=== PATIENT | male | born 1960 | race Caucasian/White ===

== ENCOUNTER 2017-05-17 20:11 | Emergency (ER) | payer OTHER ==
[~2017-05-17] VITALS: Ht 182.9 cm; Wt 163.6 kg
[2017-05-17 20:23] VITALS: Ht 182.9 cm; Wt 163.6 kg
[2017-05-17] MEDS ORDERED: SOD CHLORIDE 0.9% 1,000 ML IV STA (20:25)
[2017-05-17] MEDS ORDERED: ENALAPRILAT 1.25 MG INJ IV ONE (20:30)
[2017-05-17 20:46] LABS: AADO2 Arterial 107.3 mmHg (7.0-24.0); Allen Test ACCEPTAB; Arterial Base Excess 2.4 mmol/L (-3.0-3); Arterial COHb 1.1 % (0.0-3.0); Arterial Fraction of Oxyhgb 91.2 % (93.0-99.0); Arterial HCO3 28.9 mmol/L (22.0-26.0); Arterial MetHb 0.3 % (0.0-1.5); Arterial Total Hemglobin 16.5 g/dl (12.0-18.0); MODE NASAL CANNULA
[2017-05-17 20:59] LABS: ABNORMAL IP MESSAGE 1; BASOPHILS % 0.4 % (0.0-2.0); EOSINOPHILS # 0.3 10^3/ul (0.0-0.5); EOSINOPHILS % 4.2 % (0.0-7.0); HEMATOCRIT 46.8 % (42.0-52.0); HEMOGLOBIN 15.6 g/dl (14.0-18.0); LYMPHOCYTES # 1.8 10^3/ul (0.8-2.9); LYMPHOCYTES % 24.6 % (15.0-51.0); MEAN CORPUSCULAR HEMOGLOBIN 32.8 pg (29.0-33.0); MEAN CORPUSCULAR HGB CONC 33.3 g/dl (32.0-37.0); MEAN CORPUSCULAR VOLUME 98.3 fl (82.0-101.0); MEAN PLATELET VOLUME 13.2 fl (7.4-10.4); MONOCYTE # 0.9 10^3/ul (0.3-0.9); MONOCYTES % 12.5 % (0.0-11.0); NEUTROPHILS % 57.3 % (39.0-77.0); PLATELET COUNT 116 10^3/UL (140-415); POSITIVE DIFF @See below; RED BLOOD COUNT 4.76 10^6/ul (4.70-6.10); RED CELL DISTRIBUTION WIDTH 15.3 % (11.5-14.5); WHITE BLOOD COUNT 7.1 10^3/ul (4.8-10.8)
[2017-05-17 21:18] LABS: ALANINE AMINOTRANSFERASE 46 IU/L (13-69); ALBUMIN 3.3 g/dl (3.3-4.9); ALBUMIN/GLOBULIN RATIO 0.86; ALKALINE PHOSPHATASE 79 IU/L (42-121); ANION GAP 11 (8-16); ASPARTATE AMINO TRANSFERASE 39 IU/L (15-46); BILIRUBIN,INDIRECT 0.2 mg/dl (0-1.1); BILIRUBIN,TOTAL 0.2 mg/dl (0.2-1.3); BLOOD UREA NITROGEN 16 mg/dl (7-20); CALCIUM 8.4 mg/dl (8.4-10.2); CARBON DIOXIDE 29 mmol/L (21-31); CHLORIDE 105 mmol/L (97-110); CREATININE 0.93 mg/dl (0.61-1.24); GLUCOSE 94 mg/dl (70-220); POTASSIUM 4.2 mmol/L (3.5-5.1); SODIUM 141 mmol/L (135-144); TOTAL PROTEIN 7.1 g/dl (6.1-8.1)
[2017-05-17 21:19] LABS: ADD UMIC YES; UR ASCORBIC ACID NEGATIVE (NEGATIVE); UR BILIRUBIN (Dip) 1+ mg/dL (NEGATIVE); UR BLOOD (Dip) NEGATIVE (NEGATIVE); UR CLARITY CLEAR (CLEAR); UR COLOR AMBER (YELLOW); UR GLUCOSE (Dip) NEGATIVE (NEGATIVE); UR KETONES (Dip) NEGATIVE (NEGATIVE); UR LEUKOCYTE ESTERASE (Dip) NEGATIVE Leu/ul (NEGATIVE); UR MUCUS FEW /HPF (NONE SEEN); UR NITRITE (Dip) NEGATIVE (NEGATIVE); UR RBC 5 /HPF (0-5); UR SPECIFIC GRAVITY (Dip) 1.025 (1.003-1.030); UR TOTAL PROTEIN (Dip) 1+ mg/dl (NEGATIVE); UR UROBILINOGEN (Dip) 2+ mg/dL (NEGATIVE)
[2017-05-17 21:30] LABS: TROPONIN-I < 0.012 ng/ml (0.00-0.12)
[2017-05-17] MEDS ORDERED: FUROSEMIDE 40 MG INJ IV ONE (21:30)
[2017-05-17] MEDS ORDERED: ASPIRIN 81 MG TAB PO ONE (21:30)
--- NOTE | 2017-05-17 21:54 | ERD ---
ER Documentation Chief Complaint Date/Time DATE: 05/17/17 TIME: 21:47 Chief Complaint LYNDON PEPPER,[facility] [place],denies SOB/chest pain HPI 56-year-old man brought in by EMS for complaints of confusion. Patient does have a long history of bipolar disorder and anxiety although nursing staff found it unusual to hear him speaking about "rabbits" he has had no fevers or chills, no vomiting or diarrhea, no complaints of chest pain. Patient was transported here by EMS without further complication. ROS All systems reviewed and are negative except as per history of present illness. Allergies Allergies: Coded Allergies: No Known Allergy (Unverified , 05/17/17) PMhx/Soc Bipolar disorder, anxiety, obesity, congestive heart failure, hypertension, atrial flutter fibrillation Hx Cardiac Disorders: Yes (afib, hyperlipidemia) Hx Psychiatric Problems: Yes (depression, anxiety, bipolar) Hx Miscellaneous Medical Probl: Yes Hx Alcohol Use: No Hx Substance Use: No Hx Tobacco Use: No Smoking Status: Former smoker FmHx Family History: No diabetes Physical Exam Vitals Vital Signs Date Time Temp Pulse Resp B/P Pulse Ox O2 Delivery O2 Flow Rate FiO2 05/17/17 22:01 84 20 134/89 95 Nasal Cannula 4.0 05/17/17 20:43 89 20 131/99 95 Nasal Cannula 4.0 05/17/17 20:39 Nasal Cannula 4 05/17/17 20:23 98.6 71 18 126/104 85 Physical Exam GENERAL: Well-developed, well-nourished, dyspneic, afebrile HEENT: Moist mucous membranes, pink conjunctiva, no cervical spine tenderness or step-off deformities, no goiter, no jaundice or icterus, extraocular movements intact without pain. No submandibular induration, and no pharyngeal erythema NEURO: Alert and oriented 3, cranial nerves II through XII intact bilaterally, pupils equal round reactive to light, no focal deficits or facial asymmetry, sensation intact distally Strength 5/5 in upper and lower extremities bilaterally CARDIAC: Regular rate and rhythm, no murmurs rubs or gallops LUNGS: Poor breath sounds bilaterally, crackles no wheezing ABDOMEN: Soft nontender, no guarding, no rigidity, no rebound, no psoas sign no obturator sign. Normoactive bowel sounds SKIN: Warm and dry to touch, no abrasions, contusions, or hematomas, no lacerations, no ecchymosis, no target lesions, and without ulcers EXTREMITIES: No clubbing cyanosis, 3+ pitting edema in the lower extremities bilaterally, calves are bilaterally symmetrical, no Homans sign, no popliteal cord sign. Distal pulses equal and bilateral PSYCH: Normal affect without agitation or irritability Result Diagram: 05/17/17201405/17/172014 Results 24 hrs Laboratory Tests Test 05/17/17 20:15 05/17/17 20:25 05/17/17 21:00 White Blood Count 7.110^3/ul Red Blood Count 4.7610^6/ul Hemoglobin 15.6g/dl Hematocrit 46.8% Mean Corpuscular Volume 98.3fl Mean Corpuscular Hemoglobin 32.8pg Mean Corpuscular Hemoglobin Concent 33.3g/dl Red Cell Distribution Width 15.3% Platelet Count 74190^3/UL Mean Platelet Volume 13.2fl Neutrophils % 57.3% Lymphocytes % 24.6% Monocytes % 12.5% Eosinophils % 4.2% Basophils % 0.4% Nucleated Red Blood Cells % 0.0/100WBC Neutrophils # (Manual) 410^3/ul Lymphocytes # 1.810^3/ul Monocytes # 0.910^3/ul Eosinophils # 0.310^3/ul Basophils # 0.010^3/ul Nucleated Red Blood Cells # 0.010^3/ul Sodium Level 141mmol/L Potassium Level 4.2mmol/L Chloride Level 105mmol/L Carbon Dioxide Level 29mmol/L Anion Gap 11 Blood Urea Nitrogen 16mg/dl Creatinine 0.93mg/dl Glucose Level 94mg/dl Calcium Level 8.4mg/dl Total Bilirubin 0.2mg/dl Direct Bilirubin 0.00mg/dl Indirect Bilirubin 0.2mg/dl Aspartate Amino Transf (AST/SGOT) 39IU/L Alanine Aminotransferase (ALT/SGPT) 46IU/L Alkaline Phosphatase 79IU/L Troponin I < 0.012ng/ml Total Protein 7.1g/dl Albumin 3.3g/dl Globulin 3.80g/dl Albumin/Globulin Ratio 0.86 Lipase 85U/L Blood Gas Specimen Source Blood arterial Arterial Blood Date Drawn 05/17/2017 8:30:49 PM Arterial Blood pH (Temp corrected) 7.366 Arterial Blood pCO2 (Temp correct) 51.7mmhg Arterial Blood pO2 (Temp corrected) 67.6mmHG Arterial Blood HCO3 28.9mmol/L Arterial Blood Base Excess 2.4mmol/L Arterial Blood Oxygen Saturation 92.5mmHG Magdi Test ACCEPTAB Arterial Blood Gas Puncture Site Right Radial Arterial Blood Carboxyhemoglobin 1.1% Arterial Blood Methemoglobin 0.3% Blood Gas A-a O2 Differential 107.3mmHg Oxyhemoglobin Percent 91.2% Total Hemoglobin 16.5g/dl Blood Gas Temperature 37.0C Blood Gas Modality NASAL CANNULA FiO2 33.0% Blood Gas Notified Whom [place] Blood Gas Notified Time 05/17/2017 8:46:24 PM Urine Color TRENA Urine Clarity CLEAR Urine pH 6.0 Urine Specific [place] 1.025 Urine Ketones NEGATIVEmg/dL Urine Nitrite NEGATIVEmg/dL Urine Bilirubin 1+mg/dL Urine Urobilinogen 2+mg/dL Urine Leukocyte Esterase NEGATIVELeu/ul Urine Microscopic RBC 5/HPF Urine Microscopic WBC 2/HPF Urine Mucus FEW/HPF Urine Hemoglobin NEGATIVEmg/dL Urine Glucose NEGATIVEmg/dL Urine Total Protein 1+mg/dl Current Medications Medications (Trade) Dose Ordered Sig/Kristine Route PRN Reason Start Time Stop Time Status Last Admin Dose Admin Enalaprilat 1.25 mg 1.25 mg ONCE ONCE IV 05/17/17 20:30 05/17/17 20:31 DC 05/17/17 21:14 Sodium Chloride (NS) 1,000 ml @ 1,000 mls/hr Q1H STAT IV 05/17/17 20:25 05/17/17 21:24 DC Furosemide (Lasix) 40 mg ONCE ONCE IV 05/17/17 21:30 05/17/17 21:31 DC 05/17/17 21:36 Aspirin (Aspirin) 162 mg ONCE ONCE PO 05/17/17 21:30 05/17/17 21:30 DC Procedures/MDM IV line was established patient was placed on insurance healthcare representative rhythm strip revealed a wide complex irregular tachycardia at about 100 bpm. Patient was afebrile. One view chest x-ray performed, read by me revealed cardiomegaly and bilateral pulmonary vascular congestion, no acute infiltrates, no pneumothorax. EKG performed, read by me revealed an atrial fibrillation rate controlled at 96 bpm, normal axis, right bundle branch block, no concerning ST elevations or depressions noted. I administered enalapril 1.25 mg IV for her hypertension and furosemide 40 mg IV 1 for congestive heart failure. CBC and electrolytes are normal, liver function tests normal, troponin negative , urine analysis was negative for infection. ABG on room air revealed a pH of 7.37, PCO2 52, PO2 68 revealing respiratory acidosis, chronic. Patient's blood pressure has improved disposition pending [facility] consultation. [place] authorization #[id number] CT scan brain was negative for acute bleed mass or shift. I do suspect COPD and given his level of hypoxia on nasal cannula oxygen I administered albuterol 10 mg via nebulizer and methylprednisolone 125 mg IV 1 Departure Diagnosis: Primary Impression: Acute encephalopathy Additional Impressions: Hypertensive emergency Bipolar disorder Active/Remission status: currently active Current bipolar episode type: manic Current episode severity: severe Psychotic features: with psychotic features Qualified Code: F31.2 - Bipolar affective disorder, currently manic, severe, with psychotic features CHF (congestive heart failure) Congestive heart failure type: systolic Congestive heart failure chronicity: acute Qualified Code: I50.21 - Acute systolic congestive heart failure Condition: NICOLA Long MD May 17, 2017 21:54
--- NOTE | 2017-05-17 22:02 | RADRPT ---
PROCEDURE: Portable chest x-ray. CLINICAL INDICATION: Abdominal pain. TECHNIQUE: Portable AP view of the chest. COMPARISON: None. FINDINGS: No pulmonary edema or conolidation is identified. The cardiac silhouette is enlarged. No pleural e ffusion is seen. There is no pneumothorax. There is no pneumoperitoneum. IMPRESSION: 1. No evidence of acute cardiopulmonary disease. 2. Enlarged cardiac silhouette. 3. No pneumoperitoneum. RPTAT: HTAR .Stew Vasquez MD, Date Time Electronically viewed and signed by .Stew Vasquez MD, on 05/17/2017 22:01 .R/
--- NOTE | 2017-05-17 22:27 | RADRPT ---
PROCEDURE: CT Brain without contrast. CLINICAL INDICATION: Altered mental status. TECHNIQUE: A CT of the brain without contrast was performed utilizing axial sections from the skul l base through the vertex. The patient was scanned without intravenous contrast enhancement. [place] l and coronal reformatted images were obtained using the data from the axial images. Total exam DLP is 810.25 mGy-cm. CTDIvol is 42.16 mGy. One or more of the following dose reduction techniques we re used: Automated exposure control, adjustment of the mA and/or kV according to patient size, use o f iterative reconstruction technique. COMPARISON: None available FINDINGS: There is normal edmondson-white matter differentiation. The ventricles and cisterns are normal. There is no intracranial hemorrhage or space-occupying lesion. There is no skull fracture or lytic lesion. IMPRESSION: 1. Normal noncontrast CT scan of the brain. 2. No intracranial hemorrhage. RPTAT: QQ .Rhett Foster MD, MD Date Time Electronically viewed and signed by .Rhett Foster MD, on 05/17/2017 22:27 .R/
[2017-05-17] MEDS ORDERED: ALBUTEROL 0.083% (NEB) 2.5 MG/3 ML AMP HHN STA (22:42)
[2017-05-18 00:10] VITALS: BP 160/113; PULSE 87; RESP 20; TEMP 98.2
== END 2017-05-18 00:42 | disposition short-term general hospital (02) ==
LOC: E/R 20:11
DX: G93.40 Encephalopathy, unspecified (principal); I16.1 Hypertensive emergency; F31.2 Bipolar disorder, current episode manic severe with psychotic features; I50.21 Acute systolic (congestive) heart failure; E66.9 Obesity, unspecified; I10 Essential (primary) hypertension; Z87.891 Personal history of nicotine dependence; Z68.42 Body mass index [BMI] 45.0-49.9, adult
CPT/HCPCS: 36415; 36600; 70450; 71010; 80053; 81001; 82803; 83690; 84484; 85025; 87040; 87086; 93005; 94644; 96374; 96375; 99285; J1940; J7030